=== PATIENT | male | born 1995 | race American Indian/Alaskan Native ===

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

== ENCOUNTER 2017-04-08 09:33 | Emergency (ER) | payer SELFPAY ==
[2017-04-08 09:52] VITALS: BP 140/82
--- NOTE | 2017-04-08 11:06 | Emergency Department Report ---
HPI - General Chief Complaint: Upper Respiratory Infection Time Seen by Provider: 04/08/17 11:01 - HPI HPI: 21 year-old male with no problem medical condition who states he's had intermittent coughing for the past 4 days. Patient states he had a history of bronchitis last year and thinks it's acting. Patient states that coughing is intermittent and at some point he noticed some blood with his sputum when he coughs. He denies fevers/chills/nausea/vomiting/abdominal pain/chest pain/shortness of breath/dizziness/ ED Past Medical Hx - Past Medical History Previous Medical History?: Yes Additional medical history: Bronchitis, Right foot swelling - Surgical History Past Surgical History?: No - Social History Smoking Status: Never Smoker Substance Use Type: Non Opiate Pain - Medications Home Medications: Home Medications Medication Instructions Recorded Confirmed Last Taken Type Fluticasone [Flonase] 1 spray NS QDAY #1 bottle 05/31/16 Unknown Rx Albuterol Sulfate [Proair 90 mcg IH Q4HR PRN #2 aer.[email or web address] 04/08/17 Unknown Rx Respiclick] Benzonatate [Tessalon Perles] 100 mg PO Q8HR PRN #30 capsule 04/08/17 Unknown Rx Ibuprofen [Motrin 600 MG tab] 600 mg PO Q8H PRN #30 tablet 04/08/17 Unknown Rx ED Review of Systems ROS: Stated complaint: CHEST PAIN Other details as noted in HPI Constitutional: denies: chills, fever Eyes: denies: eye pain, eye discharge, vision change ENT: denies: ear pain, throat pain Respiratory: denies: cough, shortness of breath, wheezing Cardiovascular: denies: chest pain, palpitations Endocrine: no symptoms reported Gastrointestinal: denies: abdominal pain, nausea, diarrhea Genitourinary: denies: urgency, dysuria Musculoskeletal: denies: back pain, joint swelling, arthralgia Skin: denies: rash, lesions Neurological: denies: headache, weakness, paresthesias Psychiatric: denies: anxiety, depression Hematological/Lymphatic: denies: easy bleeding, easy bruising Physical Exam - Physical Exam Vital Signs: Vital Signs 04/08/17 09:48 Temperature 97.5 F L Pulse Rate 73 Respiratory 18 Rate Blood Pressure 140/82 O2 Sat by Pulse 99 Oximetry Physical Exam: GENERAL: Alert and oriented x3, no apparent distress, Normal Gait, atraumatic. HEAD: Head is normocephalic and a-traumatic. EYES: Extra ocular muscles are intact. Pupils are equal, round, and reactive to light and accommodation. EARS: symetrical, atraumatic, non tender, ear canal clear and moderate cerumen, tympanic membrance non inflamed. gross auditory nml bilaterally. NOSE: Nose symetrical, Nontender,Nares appeared normal. MOUTH:Mouth is well hydrated and without lesions. Tonsils nonerythematous or swollen, Uvula midline, Tongue not elevated. Mucous membranes are moist. Posterior pharynx clear, no exudate or lesions. Patent airways. NECK: Supple. Non edematous, No carotid bruits. No lymphadenopathy or thyromegaly. No C-spine tenderness LUNGS: Symetrical with respiration, No wheezing, no rales or crackles, CTAB. HEART: S1, S2 present, regular rate and rhythm without murmur, no rubs, no gallops. Non tender to palpation SKIN: Warm and dry, No lesions, No ulceration or induration present. ED Course Vital Signs 04/08/17 09:48 Temperature 97.5 F L Pulse Rate 73 Respiratory 18 Rate Blood Pressure 140/82 O2 Sat by Pulse 99 Oximetry ED Medical Decision Making - Radiology Data Radiology results: report reviewed, image reviewed cc: MARIO LAUREN Fluoro Time In Minutes: ROUTINE CHEST, TWO VIEWS: HISTORY: Cough. The trachea, heart, mediastinal contour, lung regan and bony thorax are unremarkable. IMPRESSION: Unremarkable chest x-ray. Transcribed By: TTR Dictated By: TITO PATHAK JR, MD Electronically Authenticated By: TITO PATHAK JR, MD Signed Date/Time: 04/08/17 1140 Critical care attestation.: If time is entered above; I have spent that time in minutes in the direct care of this critically ill patient, excluding procedure time. ED Disposition Clinical Impression: Bronchitis Disposition: DC-01 TO HOME OR SELFCARE Is pt being admited?: No Does the pt Need Aspirin: No Condition: Stable Instructions: Chronic Bronchitis (ED) Additional Instructions: Make sure to follow up with the primary care physician as discussed. Take all your medications as you've been prescribed. If you have any worsening symptoms or develop new symptoms please return to ED immediately. Prescriptions: Albuterol Sulfate [Proair Respiclick] 90 mcg IH Q4HR PRN #2 aer.pow.ba PRN Reason: Wheezing Benzonatate [Tessalon Perles] 100 mg PO Q8HR PRN #30 capsule PRN Reason: Cough Ibuprofen [Motrin 600 MG tab] 600 mg PO Q8H PRN #30 tablet PRN Reason: Pain Referrals: PRIMARY CARE, [Primary Care Provider] - 3-5 Days [facility] [Outside] - 3-5 Days [facility] [Outside] - 3-5 Days [facility] [Outside] - 3-5 Days Forms: Work/School Release Form(ED) Time of Disposition: 12:32
--- NOTE | 2017-04-08 11:44 | XRay Report ---
ROUTINE CHEST, TWO VIEWS: HISTORY: Cough. The trachea, heart, mediastinal contour, lung regan and bony thorax are unremarkable. IMPRESSION: Unremarkable chest x-ray.
== END 2017-04-08 13:08 | disposition home or self-care (01) ==
LOC: ED 09:33
DX: J40 Bronchitis, not specified as acute or chronic (principal)
CPT/HCPCS: 71020; 99283

== ENCOUNTER 2017-11-03 16:52 | Emergency (ER) | payer OTHER ==
[2017-11-03] MEDS ORDERED: TORADOL IV ONE (17:39)
[2017-11-03] MEDS ORDERED: DILAUDID IV ONE ×2 (17:39→20:11)
[2017-11-03] MEDS ORDERED: ZOFRAN IV ONE (17:39)
[2017-11-03] MEDS ORDERED: MORPHINE IV ONE (17:58)
[2017-11-03 18:19] LABS: Basophils % (Auto) 0.4 % (0.0-1.8); Eosinophils # (Auto) 0.2 K/mm3 (0.0-0.4); Eosinophils % (Auto) 3.8 % (0.0-4.3); Hemoglobin 15.5 gm/dl (11.8-15.2); Lymphocytes # (Auto) 1.8 K/mm3 (1.2-5.4); Lymphocytes % (Auto) 33.6 % (13.4-35.0); Mean Corpuscular HGB Conc 32 % (32-34); Mean Corpuscular Hemoglobin 27 pg (28-32); Mean Corpuscular Volume 84 fl (84-94); Monocytes # (Auto) 0.5 K/mm3 (0.0-0.8); Monocytes % (Auto) 8.9 % (0.0-7.3); Platelet Count 228 K/mm3 (140-440); Red Blood Count 5.68 M/mm3 (3.65-5.03); Red Cell Distribution Width 14.2 % (13.2-15.2)
[2017-11-03 18:27] LABS: INR 1.02 (0.87-1.13)
[2017-11-03 18:28] LABS: Partial Thromboplastin Time 34.3 Sec. (24.2-36.6)
[2017-11-03 18:35] LABS: Alanine Aminotransferase 10 units/L (7-56); Albumin 4.3 g/dL (3.9-5); BUN/Creatinine Ratio 15; Blood Urea Nitrogen 15 mg/dL (9-20); Calcium 9.2 mg/dL (8.4-10.2); Hemolysis Index 15
--- NOTE | 2017-11-03 19:22 | Emergency Department Report ---
<MARIE KHALIL - Last Filed: 11/03/17 23:56> ED Fall HPI - General Chief Complaint: Fall Stated Complaint: HEAD PAIN Time Seen by Provider: 11/03/17 16:59 - Related Data Previous Rx's Medication Instructions Recorded Last Taken Type Fluticasone [Flonase] 1 spray NS QDAY #1 bottle 05/31/16 Unknown Rx Albuterol Sulfate [Proair 90 mcg IH Q4HR PRN #2 aer.pow.ba 04/08/17 Unknown Rx Respiclick] Benzonatate [Tessalon Perles] 100 mg PO Q8HR PRN #30 capsule 04/08/17 Unknown Rx ALBUTEROL NEB's [Proventil 0.083% 2.5 mg IH TID PRN #1 box 10/24/17 Unknown Rx NEBS] Albuterol Sulfate [Ventolin Hfa] 1 puff IH Q4H PRN #1 hfa.aer.ad 10/24/17 Unknown Rx Benzonatate [Tessalon Perles] 100 mg PO Q8HR PRN #20 capsule 10/24/17 Unknown Rx Nebulizer [Compact Compressor 1 each MC ONCE #1 each 10/24/17 Unknown Rx Nebulizer] Phenylephrine/Dm/Acetaminop/GG 10 ml PO Q6H PRN #1 liquid 10/24/17 Unknown Rx [Mucinex Mvuh-Fyp-Sxjikykmzr Lq] predniSONE [Deltasone] 40 mg PO QDAY #10 tab 10/24/17 Unknown Rx Ondansetron [Zofran Odt] 4 mg PO Q8HR PRN #14 tab.rapdis 11/03/17 Unknown Rx traMADol [Ultram 50 MG tab] 50 mg PO Q4HR PRN #14 tablet 11/03/17 Unknown Rx Allergies Allergy/AdvReac Type Severity Reaction Status Date / Time No Known Allergies Allergy Verified 10/24/17 13:10 ED Review of Systems ROS: Stated complaint: HEAD PAIN Other details as noted in HPI ED Past Medical Hx - Medications Home Medications: Home Medications Medication Instructions Recorded Confirmed Last Taken Type Fluticasone [Flonase] 1 spray NS QDAY #1 bottle 05/31/16 Unknown Rx Albuterol Sulfate [Proair 90 mcg IH Q4HR PRN #2 aer.pow.ba 04/08/17 Unknown Rx Respiclick] Benzonatate [Tessalon Perles] 100 mg PO Q8HR PRN #30 capsule 04/08/17 Unknown Rx ALBUTEROL NEB's [Proventil 0.083% 2.5 mg IH TID PRN #1 box 10/24/17 Unknown Rx NEBS] Albuterol Sulfate [Ventolin Hfa] 1 puff IH Q4H PRN #1 hfa.aer.ad 10/24/17 Unknown Rx Benzonatate [Tessalon Perles] 100 mg PO Q8HR PRN #20 capsule 10/24/17 Unknown Rx Nebulizer [Compact Compressor 1 each MC ONCE #1 each 10/24/17 Unknown Rx Nebulizer] Phenylephrine/Dm/Acetaminop/GG 10 ml PO Q6H PRN #1 liquid 10/24/17 Unknown Rx [Mucinex Scpr-Stn-Rpbgufhvrk Lq] predniSONE [Deltasone] 40 mg PO QDAY #10 tab 10/24/17 Unknown Rx Ondansetron [Zofran Odt] 4 mg PO Q8HR PRN #14 tab.rapdis 11/03/17 Unknown Rx traMADol [Ultram 50 MG tab] 50 mg PO Q4HR PRN #14 tablet 11/03/17 Unknown Rx ED Course Vital Signs 11/03/17 11/03/17 11/03/17 17:22 17:30 17:46 Temperature 98.8 F Pulse Rate 61 76 57 L Respiratory 11 L 10 L 16 Rate Blood Pressure 116/70 116/70 Blood Pressure 116/70 [Right] O2 Sat by Pulse 100 100 99 Oximetry 11/03/17 11/03/17 11/03/17 18:00 18:15 18:23 Temperature Pulse Rate 56 L 60 Respiratory 16 18 17 Rate Blood Pressure 108/68 117/71 Blood Pressure [Right] O2 Sat by Pulse 100 98 Oximetry 11/03/17 11/03/17 11/03/17 18:30 19:41 19:44 Temperature Pulse Rate 61 62 76 Respiratory 15 13 Rate Blood Pressure 117/71 132/83 132/83 Blood Pressure [Right] O2 Sat by Pulse 98 97 98 Oximetry 11/03/17 11/03/17 11/03/17 19:45 20:00 20:03 Temperature Pulse Rate 72 75 68 Respiratory 9 L 11 L 12 Rate Blood Pressure 122/75 123/73 123/73 Blood Pressure [Right] O2 Sat by Pulse 98 99 100 Oximetry 11/03/17 11/03/17 11/03/17 20:15 20:31 20:45 Temperature Pulse Rate 65 64 59 L Respiratory 6 L 17 11 L Rate Blood Pressure 123/73 109/57 109/57 Blood Pressure [Right] O2 Sat by Pulse 99 99 100 Oximetry 11/03/17 11/03/17 11/03/17 21:01 21:15 21:30 Temperature Pulse Rate 54 L 58 L 58 L Respiratory 17 14 15 Rate Blood Pressure 115/77 115/77 127/65 Blood Pressure [Right] O2 Sat by Pulse 93 98 99 Oximetry 11/03/17 11/03/17 11/03/17 21:45 22:00 22:15 Temperature Pulse Rate 73 60 61 Respiratory 11 L 14 14 Rate Blood Pressure 115/77 136/61 136/61 Blood Pressure [Right] O2 Sat by Pulse 96 89 89 Oximetry ED Medical Decision Making - Lab Data Result diagrams: 11/03/17 17:59 11/03/17 17:59 Critical care attestation.: If time is entered above; I have spent that time in minutes in the direct care of this critically ill patient, excluding procedure time. ED Disposition Clinical Impression: Fall, Numbness of left lower extremity Disposition: DC-01 TO HOME OR SELFCARE Is pt being admited?: No Condition: Stable Instructions: Paresthesia (ED), Fall Prevention (ED) Prescriptions: Ondansetron [Zofran Odt] 4 mg PO Q8HR PRN #14 tab.rapdis PRN Reason: Nausea And Vomiting traMADol [Ultram 50 MG tab] 50 mg PO Q4HR PRN #14 tablet PRN Reason: Pain Referrals: PRIMARY CARE, [Primary Care Provider] - 3-5 Days <ANNE BROWN - Last Filed: 11/06/17 07:39> ED Fall HPI - General Source: patient, EMS Mode of arrival: Stretcher Limitations: No Limitations - History of Present Illness Initial Comments: 22-year-old male with a past medical history reactive airway disease presents to the hospital status post fall while time to jump over a fence. Patient states he started shortcut to somewhat sharp and is trying to climb over a 6 foot fence when he fell. Positive LOC reported. Patient complains of headache , neck pain, left-sided rib, left abdominal pain, left hip pain, left leg numbness. Pain is moderate to severe in intensity, constant, worse movement and palpation. ED Review of Systems Comment: All other systems reviewed and negative ED Past Medical Hx - Past Medical History Hx Asthma: Yes Additional medical history: Bronchitis Reactive airway disease - Surgical History Past Surgical History?: No - Social History Smoking Status: Never Smoker Substance Use Type: None ED Physical Exam - General Limitations: Physical Limitation - Other Other exam information: General: Mild distress secondary to pain Head exam: Atraumatic, normocephalic Eyes exam: Normal appearance, pupils equal and reactive to light ENT: Moist mucous membrane Neck exam: Patient in c-collar, generalized posterior neck tenderness on exam Respiratory exam: Clear to auscultation bilateral, no wheezes, rales, crackles. Left-sided rib tenderness with palpation Cardiovascular: Normal rate and rhythm, normal heart sounds Abdomen: Soft, nondistended, Left abd tenderness, with normal bowel sounds, no rebound, or guarding Rectal tone: good, no saddle anesthesia Extremity: Left hip tenderness, limited motion due to pain, no deformity Back: Normal Inspection, full range of motion, no midline enderness to the thoracic or lumbar spine. Neurologic: Alert, oriented x3, cranial nerves intact, patient unable to lift left leg off of the bed. Weak left foot plantar flexion and grimace during attempts. These of persistent left hip pain. Decreased sensation to touch and pinprick to the left leg. Equal hand ice cream scooper and sensation to touch to bilateral arms. Psychiatric: normal affect, normal mood Skin: Warm, dry, intact ED Course - Reevaluation(s) Reevaluation #1: 11/03/17 20:22 pt continues to have hip pain and left leg numbness ED Medical Decision Making - Lab Data Result diagrams: 11/03/17 17:59 11/03/17 17:59 Lab Results 11/03/17 11/03/17 11/03/17 Range/Units 17:56 17:59 17:59 WBC 5.5 (4.5-11.0) K/mm3 RBC 5.68 H (3.65-5.03) M/mm3 Hgb 15.5 H (11.8-15.2) gm/dl Hct 48.0 H (35.5-45.6) % MCV 84 (84-94) fl MCH 27 L (28-32) pg MCHC 32 (32-34) % RDW 14.2 (13.2-15.2) % Plt Count 228 (140-440) K/mm3 Lymph % (Auto) 33.6 (13.4-35.0) % [place] % (Auto) 8.9 H (0.0-7.3) % Eos % (Auto) 3.8 (0.0-4.3) % Baso % (Auto) 0.4 (0.0-1.8) % Lymph # 1.8 (1.2-5.4) K/mm3 [place] # 0.5 (0.0-0.8) K/mm3 Eos # 0.2 (0.0-0.4) K/mm3 Baso # 0.0 (0.0-0.1) K/mm3 Seg Neutrophils % 53.3 (40.0-70.0) % Seg Neutrophils # 2.9 (1.8-7.7) K/mm3 PT 13.9 (12.2-14.9) Sec. INR 1.02 (0.87-1.13) APTT 34.3 (24.2-36.6) Sec. Sodium (137-145) mmol/L Potassium (3.6-5.0) mmol/L Chloride (98-107) mmol/L Carbon Dioxide (22-30) mmol/L Anion Gap mmol/L BUN (9-20) mg/dL Creatinine (0.8-1.5) mg/dL Estimated GFR ml/min BUN/Creatinine Ratio % Glucose (75-100) mg/dL Calcium (8.4-10.2) mg/dL Total Bilirubin (0.1-1.2) mg/dL AST (5-40) units/L ALT (7-56) units/L Alkaline Phosphatase (35-129) units/L Total Protein (6.3-8.2) g/dL Albumin (3.9-5) g/dL Albumin/Globulin Ratio % Blood Type O POSITIVE Antibody Screen Negative 11/03/17 Range/Units 17:59 WBC (4.5-11.0) K/mm3 RBC (3.65-5.03) M/mm3 Hgb (11.8-15.2) gm/dl Hct (35.5-45.6) % MCV (84-94) fl MCH (28-32) pg MCHC (32-34) % RDW (13.2-15.2) % Plt Count (140-440) K/mm3 Lymph % (Auto) (13.4-35.0) % [place] % (Auto) (0.0-7.3) % Eos % (Auto) (0.0-4.3) % Baso % (Auto) (0.0-1.8) % Lymph # (1.2-5.4) K/mm3 [place] # (0.0-0.8) K/mm3 Eos # (0.0-0.4) K/mm3 Baso # (0.0-0.1) K/mm3 Seg Neutrophils % (40.0-70.0) % Seg Neutrophils # (1.8-7.7) K/mm3 PT (12.2-14.9) Sec. INR (0.87-1.13) APTT (24.2-36.6) Sec. Sodium 138 (137-145) mmol/L Potassium 4.3 (3.6-5.0) mmol/L Chloride 100.0 (98-107) mmol/L Carbon Dioxide 29 (22-30) mmol/L Anion Gap 13 mmol/L BUN 15 (9-20) mg/dL Creatinine 1.0 (0.8-1.5) mg/dL Estimated GFR > 60 ml/min BUN/Creatinine Ratio 15 % Glucose 95 (75-100) mg/dL Calcium 9.2 (8.4-10.2) mg/dL Total Bilirubin 0.50 (0.1-1.2) mg/dL AST 18 (5-40) units/L ALT 10 (7-56) units/L Alkaline Phosphatase 49 (35-129) units/L Total Protein 6.7 (6.3-8.2) g/dL Albumin 4.3 (3.9-5) g/dL Albumin/Globulin Ratio 1.8 % Blood Type Antibody Screen - Radiology Data Radiology results: report reviewed FINAL REPORT EXAM: CT CERVICAL SPINE WO CON HISTORY: left chest pain s/p 6 ft fall TECHNIQUE: Standard CT cervical spine obtained at 2.5 mm axial increments. Coronal and sagittal reconstruction was also performed. PRIORS: None. FINDINGS: The vertebral bodies are intact. There is no evidence for acute fracture. There is no evidence for paravertebral soft tissue swelling. Alignment is maintained. IMPRESSION: Negative CT of the cervical spine. EXAM: CT HEAD/BRAIN WO CON HISTORY: fall off 6 ft fence, syncope TECHNIQUE: Standard unenhanced CT of the head at 5.0 millimeter axial increments. PRIORS: None. FINDINGS: The ventricular system is normal in size and configuration. There is no evidence for parenchymal volume loss. There is no evidence for mass lesion, mass effect, midline shift, acute intracranial hemorrhage, or acute ischemia/ infarction. No evidence for acute skull fracture is seen. No abnormality in the overlying scalp soft tissues is seen. Visualized paranasal sinuses demonstrates mucosal thickening in the maxillary sinuses, right greater than left, and several scattered bilateral ethmoid sinuses. IMPRESSION: Chronic sinusitis.. No acute intracranial process noted. EXAM: CT CHEST W CON HISTORY: left chest pain s/p 6 ft fall TECHNIQUE: Standard enhanced CT of the chest at 5.0 millimeter axial increments. Coronal and sagittal reconstructions were obtained. Contrast: 100 cc Omnipaque 300 given IV. PRIORS: None. FINDINGS: The lung parenchyma are expanded and clear with no evidence for parenchymal infiltrates, congestion, or pleural effusion. No pneumothorax is noted. No parenchymal lung contusion is seen. Mediastinum has a normal appearance with no evidence for mediastinal hematoma or mediastinal air. The thymus is normal for the patient's age. Heart, aorta, and other vascular structures appear intact with no evidence for extravasation of contrast. The bony structures appear intact with no evidence for fracture. No soft tissue abnormality is seen. Imaging through the lung bases includes the upper abdomen shows no abnormality of the visualized abdominal viscera. The upper abdominal aorta appears normal. IMPRESSION: Negative CT of the chest. No evidence for vascular injury, pneumothorax, or bony fracture. FINAL REPORT EXAM: CT ABDOMEN PELVIS W CON HISTORY: left abd pain and hip pain s/p 6 ft fall TECHNIQUE: Standard enhanced CT of the abdomen and pelvis. Coronal and sagittal reconstruction was also performed. Delayed imaging was obtained. Contrast: 100 mL Omnipaque 300 given IV. PRIORS: None. FINDINGS: Within the abdomen, the liver, spleen, pancreas, gallbladder, adrenal glands, and kidneys are unremarkable. No evidence for intraperitoneal, retroperitoneal or pelvic hemorrhage is seen. The bowel loops have normal caliber. No soft tissue mass, fluid collection, inflammatory change, or free air is seen within the abdomen or pelvis. The appendix is normal. Within the pelvis, the bladder is unremarkable. The prostate is normal. No evidence for mass or fluid collection is seen in the pelvis. Images through the upper abdomen include the lung bases which are expanded and clear. Bony structures show no focal abnormalities and are intact. No evidence for acute fracture is seen. IMPRESSION: No acute intra-abdominal process noted. No evidence for bony, vascular, or organ injury. FINAL REPORT PROCEDURE: MR LUMBAR SPINE WO CON TECHNIQUE: Magnetic resonance imaging of the lumbar spine was performed using standard pulse sequences without contrast material. CPT 21746 HISTORY: left leg weakness, numbness after fall COMPARISON: No prior studies are available for comparison. FINDINGS: This study is limited due to motion artifacts. Vertebral alignment and height are within normal limits with normal bone marrow signal. Conus medullaris is normal in location and appearance. L1-2: No significant abnormality . L2-3: No significant abnormality . L3-4: No significant abnormality . L4-5: No significant abnormality . L5-S1: No significant abnormality.. Other: None . IMPRESSION: Limited study due to motion artifacts. No evidence of spinal canal or neural foraminal compromise. FINAL REPORT EXAM: XR FEMUR 2+V LT HISTORY: left femur pain after fall TECHNIQUE: AP and lateral views of the left femur PRIORS: None. FINDINGS: There is no evidence for acute fracture or dislocation. No soft tissue swelling or radiopaque foreign bodies are seen. Bony mineralization is normal and joint spaces are maintained. IMPRESSION: No acute bony or soft tissue abnormality noted. - Medical Decision Making Patient has persistent left leg pain and numbness despite medication. Additional medication ordered. Patient continues to have left leg and numbness to pinprick. He reports a previous left hip injury/dislocation in the past but had normal sensation prior to this fall. For this reason x-ray of the left femur and MRI of the L-spine has been ordered. Dr Khalil to follow results and dispo pt. - Differential Diagnosis fxt, contuson, sprain, spinal injury Critical Care Time: No ED Disposition Is pt being admited?: No Time of Disposition: 02:45
--- NOTE | 2017-11-03 19:41 | Cat Scan Report ---
FINAL REPORT EXAM: CT CERVICAL SPINE WO CON HISTORY: left chest pain s/p 6 ft fall TECHNIQUE: Standard CT cervical spine obtained at 2.5 mm axial increments. Coronal and sagittal reconstruction was also performed. PRIORS: None. FINDINGS: The vertebral bodies are intact. There is no evidence for acute fracture. There is no evidence for paravertebral soft tissue swelling. Alignment is maintained. IMPRESSION: Negative CT of the cervical spine.
--- NOTE | 2017-11-03 19:50 | Cat Scan Report ---
FINAL REPORT EXAM: CT CHEST W CON HISTORY: left chest pain s/p 6 ft fall TECHNIQUE: Standard enhanced CT of the chest at 5.0 millimeter axial increments. Coronal and sagittal reconstructions were obtained. Contrast: 100 cc Omnipaque 300 given IV. PRIORS: None. FINDINGS: The lung parenchyma are expanded and clear with no evidence for parenchymal infiltrates, congestion, or pleural effusion. No pneumothorax is noted. No parenchymal lung contusion is seen. Mediastinum has a normal appearance with no evidence for mediastinal hematoma or mediastinal air. The thymus is normal for the patient's age. Heart, aorta, and other vascular structures appear intact with no evidence for extravasation of contrast. The bony structures appear intact with no evidence for fracture. No soft tissue abnormality is seen. Imaging through the lung bases includes the upper abdomen shows no abnormality of the visualized abdominal viscera. The upper abdominal aorta appears normal. IMPRESSION: Negative CT of the chest. No evidence for vascular injury, pneumothorax, or bony fracture.
--- NOTE | 2017-11-03 20:01 | Cat Scan Report ---
FINAL REPORT EXAM: CT ABDOMEN PELVIS W CON HISTORY: left abd pain and hip pain s/p 6 ft fall TECHNIQUE: Standard enhanced CT of the abdomen and pelvis. Coronal and sagittal reconstruction was also performed. Delayed imaging was obtained. Contrast: 100 mL Omnipaque 300 given IV. PRIORS: None. FINDINGS: Within the abdomen, the liver, spleen, pancreas, gallbladder, adrenal glands, and kidneys are unremarkable. No evidence for intraperitoneal, retroperitoneal or pelvic hemorrhage is seen. The bowel loops have normal caliber. No soft tissue mass, fluid collection, inflammatory change, or free air is seen within the abdomen or pelvis. The appendix is normal. Within the pelvis, the bladder is unremarkable. The prostate is normal. No evidence for mass or fluid collection is seen in the pelvis. Images through the upper abdomen include the lung bases which are expanded and clear. Bony structures show no focal abnormalities and are intact. No evidence for acute fracture is seen. IMPRESSION: No acute intra-abdominal process noted. No evidence for bony, vascular, or organ injury.
--- NOTE | 2017-11-03 22:25 | XRay Report ---
FINAL REPORT EXAM: XR FEMUR 2+V LT HISTORY: left femur pain after fall TECHNIQUE: AP and lateral views of the left femur PRIORS: None. FINDINGS: There is no evidence for acute fracture or dislocation. No soft tissue swelling or radiopaque foreign bodies are seen. Bony mineralization is normal and joint spaces are maintained. IMPRESSION: No acute bony or soft tissue abnormality noted.
--- NOTE | 2017-11-03 23:37 | Magnetic Resonance Report ---
FINAL REPORT PROCEDURE: MR LUMBAR SPINE WO CON TECHNIQUE: Magnetic resonance imaging of the lumbar spine was performed using standard pulse sequences without contrast material. CPT 43407 HISTORY: left leg weakness, numbness after fall COMPARISON: No prior studies are available for comparison. FINDINGS: This study is limited due to motion artifacts. Vertebral alignment and height are within normal limits with normal bone marrow signal. Conus medullaris is normal in location and appearance. L1-2: No significant abnormality . L2-3: No significant abnormality . L3-4: No significant abnormality . L4-5: No significant abnormality . L5-S1: No significant abnormality.. Other: None . IMPRESSION: Limited study due to motion artifacts. No evidence of spinal canal or neural foraminal compromise.
--- NOTE | 2017-11-03 23:56 | Emergency Department Report ---
Blank Doc - Documentation Documentation: Patient is 22 years old male signed out to me by my colleague Dr. Holliday. Patient presented to the ER for evaluation after a fall with chief complaint of left leg weakness and numbness. Patient LS spine MRI as follows: Referring Physician: ANNE BROWN Patient Name: EFRAÍN BOLANOS Date of : 1995 Sex: Male Report Date: 2017-11-03 Report Status: [place] [address] Magnetic Resonance Report Signed Patient: EFRAÍN BOLANOS MR#: [id number] : 1995 Acct:[id number] Age/Sex: 22 / M ADM Date: 11/03/17 Loc: ED Attending Dr: Ordering Physician: ANNE BROWN MD Date of Service: 11/03/17 Procedure(s): MR lumbar spine wo con Accession Number(s): [id number] cc: ANNE BROWN MD FINAL REPORT PROCEDURE: MR LUMBAR SPINE WO CON TECHNIQUE: Magnetic resonance imaging of the lumbar spine was performed using standard pulse sequences without contrast material. CPT 38108 HISTORY: left leg weakness, numbness after fall COMPARISON: No prior studies are available for comparison. FINDINGS: This study is limited due to motion artifacts. Vertebral alignment and height are within normal limits with normal bone marrow signal. Conus medullaris is normal in location and appearance. L1-2: No significant abnormality . L2-3: No significant abnormality . L3-4: No significant abnormality . L4-5: No significant abnormality . L5-S1: No significant abnormality.. Other: None . IMPRESSION: Limited study due to motion artifacts. No evidence of spinal canal or neural foraminal compromise. Transcribed By: [facility] Dictated By: STEFANO DILL Electronically Authenticated By: STEFANO DILL Signed Date/Time: 11/03/172332 DD/ 32 TD/TT: 11/03/172332 On exam patient does not have any weakness on both sides. Mild numbness to the left leg mainly to the anterio-lateral side. Patient also mentioned that he had history of left hip dislocation in 2016. Patient is able to walk with no difficulty. Patient will be discharged home to follow-up with his primary care physician. I also advised patient to return to the ER if his symptoms are not improving.
[2017-11-04 02:47] VITALS: BP 136/61
== END 2017-11-03 23:00 | disposition home or self-care (01) ==
LOC: ED 16:52
DX: M25.552 Pain in left hip (principal); M54.2 Cervicalgia; R20.0 Anesthesia of skin; J45.909 Unspecified asthma, uncomplicated; R07.89 Other chest pain; R10.2 Pelvic and perineal pain; M54.6 Pain in thoracic spine
CPT/HCPCS: 36415; 70450; 71260; 72125; 72148; 73552; 74177; 80053; 85025; 85610; 85730; 86850; 86900; 86901; 96374; 96375; 99285; J1170; J1885; J2270; J2405; Q9967

== ENCOUNTER 2017-12-29 04:27 | Emergency (ER) | payer SELFPAY ==
[2017-12-29 08:39] VITALS: BP 127/71
[2017-12-29] MEDS ORDERED: ASPIRIN PO ONE (08:40)
[2017-12-29 09:57] LABS: Basophils % (Auto) 0.5 % (0.0-1.8); Eosinophils # (Auto) 0.3 K/mm3 (0.0-0.4); Eosinophils % (Auto) 4.6 % (0.0-4.3); Hematocrit 48.4 % (35.5-45.6); Hemoglobin 15.8 gm/dl (11.8-15.2); Lymphocytes # (Auto) 1.6 K/mm3 (1.2-5.4); Lymphocytes % (Auto) 28.8 % (13.4-35.0); Mean Corpuscular HGB Conc 33 % (32-34); Mean Corpuscular Hemoglobin 28 pg (28-32); Mean Corpuscular Volume 85 fl (84-94); Monocytes # (Auto) 0.5 K/mm3 (0.0-0.8); Monocytes % (Auto) 8.6 % (0.0-7.3); Platelet Count 206 K/mm3 (140-440); Red Blood Count 5.67 M/mm3 (3.65-5.03); Red Cell Distribution Width 14.6 % (13.2-15.2)
[2017-12-29 10:10] LABS: BUN/Creatinine Ratio 19; Blood Urea Nitrogen 17 mg/dL (9-20); Hemolysis Index 19
== END 2017-12-29 13:22 | disposition left against medical advice (07) ==
LOC: ED 04:27
DX: R07.9 Chest pain, unspecified (principal); M54.2 Cervicalgia; F17.200 Nicotine dependence, unspecified, uncomplicated; J45.909 Unspecified asthma, uncomplicated; I10 Essential (primary) hypertension; Z53.21 Procedure and treatment not carried out due to patient leaving prior to being seen by health care provider; Z79.899 Other long term (current) drug therapy
CPT/HCPCS: 36415; 80048; 84484; 85025; 93005; 93010

== ENCOUNTER 2018-09-29 12:21 | Emergency (ER) | payer SELFPAY | END 2018-09-29 12:40 | LOC: ED 12:21 | DX: Z00.8 Encounter for other general examination (principal); Z53.21 Procedure and treatment not carried out due to patient leaving prior to being seen by health care provider ==

== ENCOUNTER 2019-05-12 16:05 | Emergency (ER) | payer SELFPAY ==
[2019-05-12 16:44] VITALS: BP 139/82
[2019-05-12] MEDS ORDERED: IBUPROFEN 600 MG TAB PO ONE ×2 (17:04→17:05)
--- NOTE | 2019-05-12 17:06 | Emergency Department Report ---
Minor Respiratory - HPI Chief Complaint: Upper Respiratory Infection Stated Complaint: FLU LIKE SYMPTOMS Time Seen by Provider: 05/12/19 17:02 Duration: 2 Days Severity: moderate Minor Respiratory: Yes Sore Throat, Yes Able to Tolerate Fluids, Yes Cough, Yes Sick Contacts, Yes Fever, No Rhinorrhea, No Ear Pain, No Hemoptysis, No Chest Pain, No Shortness of Breath Other History: 23 YO AA MALE COMES TO ER WITH FLU LIKE SYMPTOMS. FEVER. COUGH. NO ABD PAIN. NO FLU SHOT. HAS NOT SEEN PCP. ED Review of Systems ROS: Stated complaint: FLU LIKE SYMPTOMS Other details as noted in HPI Comment: All other systems reviewed and negative ED Past Medical Hx - Past Medical History Hx Hypertension: Yes Hx Asthma: Yes Additional medical history: Bronchitis Reactive airway disease - Surgical History Past Surgical History?: Yes - Family History Family history: no significant - Social History Smoking Status: Never Smoker - Medications Home Medications: Home Medications Medication Instructions Recorded Confirmed Last Taken Type Fluticasone [Flonase] 1 spray NS QDAY #1 bottle 05/31/16 Unknown Rx Albuterol Sulfate [Proair 90 mcg IH Q4HR PRN #2 aer.pow.ba 04/08/17 Unknown Rx Respiclick] Benzonatate [Tessalon Perles] 100 mg PO Q8HR PRN #30 capsule 04/08/17 Unknown Rx ALBUTEROL NEB's [Proventil 0.083% 2.5 mg IH TID PRN #1 box 10/24/17 Unknown Rx NEBS] Albuterol Sulfate [Ventolin Hfa] 1 puff IH Q4H PRN #1 hfa.aer.ad 10/24/17 Unknown Rx Benzonatate [Tessalon Perles] 100 mg PO Q8HR PRN #20 capsule 10/24/17 Unknown Rx Nebulizer [Compact Compressor 1 each MC ONCE #1 each 10/24/17 Unknown Rx Nebulizer] Phenylephrine/Dm/Acetaminop/GG 10 ml PO Q6H PRN #1 liquid 10/24/17 Unknown Rx [Mucinex Rxou-Wpa-Yehqqvlmhk Lq] predniSONE [Deltasone] 40 mg PO QDAY #10 tab 10/24/17 Unknown Rx Ondansetron [Zofran Odt] 4 mg PO Q8HR PRN #14 tab.rapdis 11/03/17 Unknown Rx traMADoL [Ultram 50 MG tab] 50 mg PO Q4HR PRN #14 tablet 11/03/17 Unknown Rx Acetaminophen/Codeine [Tylenol 1 tab PO Q6H PRN #12 tab 03/01/18 Unknown Rx /Codeine # 3 tab] Ibuprofen [Motrin 600 MG tab] 600 mg PO Q8H PRN #15 tablet 03/01/18 Unknown Rx Oseltamivir [Tamiflu] 75 mg PO BID #10 cap 05/12/19 Unknown Rx Minor Respiratory Exam - Exam General: Vital signs noted. No distress. Alert and acting appropriately. HEENT: Yes Moist Mucous Membranes, No Pharyngeal Erythema, No Pharyngeal Exudates, No Rhinorrhea, No Conjuctival Injection, No Frontal Tenderness, No Maxillary Tenderness Ear: Neither TM Bulge, Neither TM Erythema, Neither EAC Pain, Neither EAC Discharge Neck: Yes Supple, No Adenopathy Lungs: Yes Good Air Exchange, No Wheezes, No Ronchi, No Stridor, No Cough, No Labored Respirations, No Retractions, No Use of Accessory Muscles, No Other Abnormal Lung Sounds Heart: Yes Regular, No Murmur Abdomen: Yes Normal Bowel Sounds, No Tenderness, No Peritoneal Signs Skin: No Rash, No Edema Neurologic: Alert and oriented, no deficits. Musculoskeletal: Unremarkable. ED Course Vital Signs 05/12/19 16:41 Temperature 102.0 F H Pulse Rate 115 H Respiratory 20 Rate Blood Pressure 139/82 O2 Sat by Pulse 98 Oximetry ED Medical Decision Making - Medical Decision Making Vital Signs 05/12/19 16:41 Temperature 102.0 F H Pulse Rate 115 H Respiratory 20 Rate Blood Pressure 139/82 O2 Sat by Pulse 98 Oximetry MEDICATED WITH MOTRIN IN ER DC HOME WITH RX FOR TAMIFLU AND PCP REFERRAL AMBULATORY TAKING PO - Differential Diagnosis FLU Critical care attestation.: If time is entered above; I have spent that time in minutes in the direct care of this critically ill patient, excluding procedure time. ED Disposition Clinical Impression: Influenza Disposition: DC-01 TO HOME OR SELFCARE Is pt being admited?: No Does the pt Need Aspirin: No Condition: Stable Instructions: Influenza (ED) Additional Instructions: TAKE MOTRIN AND TYLENOL AROUND THE CLOCK FOR PAIN MED ORDERED TODAY FOLLOW UP WITH PCP IN 48 HOURS TO BE SURE YOU ARE GETTING BETTER REFERRAL BELOW Prescriptions: Oseltamivir [Tamiflu] 75 mg PO BID #10 cap Referrals: TED FERRARO MD [Staff Physician] - 3-5 Days Time of Disposition: 17:04
== END 2019-05-12 17:13 | disposition home or self-care (01) ==
LOC: ED 16:05
DX: J11.1 Influenza due to unidentified influenza virus with other respiratory manifestations (principal); J45.909 Unspecified asthma, uncomplicated; I10 Essential (primary) hypertension; Z79.899 Other long term (current) drug therapy

== ENCOUNTER 2020-06-01 07:36 | Emergency (ER) | payer SELFPAY ==
[2020-06-01 07:46] VITALS: BP 118/70
--- NOTE | 2020-06-01 09:22 | XRay Report ---
LEFT FEMUR 2 VIEWS 0837 INDICATION: pain after fall COMPARISON: 11/03/2017 FINDINGS: Small artifact is seen on all images. No fractures or dislocations are seen. Signer Name: Lenny Flanagan MD Signed: 06/01/2020 9:18 AM Workstation Name: [id number]
--- NOTE | 2020-06-01 09:23 | XRay Report ---
LEFT KNEE 3 VIEWS INDICATION / CLINICAL INFORMATION: pain after fall. COMPARISON: None available. FINDINGS: No fracture or other skeletal abnormality. No evidence of significant joint effusion or hemarthrosis. LEFT LOWER LEG 2 VIEWS INDICATION / CLINICAL INFORMATION: pain after fall. COMPARISON: None available. FINDINGS: No fracture or other significant abnormality. Signer Name: Gabriel Stevens MD Signed: 06/01/2020 9:18 AM Workstation Name: [id number]
--- NOTE | 2020-06-01 09:28 | Emergency Department Report ---
ED General Adult HPI - General Chief complaint: Extremity Injury, Lower Stated complaint: FALL;LEG INJURY Time Seen by Provider: 06/01/20 07:46 Source: patient Mode of arrival: Ambulatory Limitations: No Limitations - History of Present Illness Initial comments: 24-year-old -[place] male patient presents with complaints of left leg pain after a fall at work today. Patient rates his pain as a 9/10 in severity states he is having difficulty walking. He states he fell onto the leg and twisted it. He denies any bruising, lacerations, or numbn ess/tingling/difficulty moving his leg. - Related Data Previous Rx's Medication Instructions Recorded Last Taken Type Fluticasone [Flonase] 1 spray NS QDAY #1 bottle 05/31/16 Unknown Rx Albuterol Sulfate [Proair 90 mcg IH Q4HR PRN #2 aer.pow.ba 04/08/17 Unknown Rx Respiclick] Benzonatate [Tessalon Perles] 100 mg PO Q8HR PRN #30 capsule 04/08/17 Unknown Rx ALBUTEROL NEB's [Proventil 0.083% 2.5 mg IH TID PRN #1 box 10/24/17 Unknown Rx NEBS] Albuterol Sulfate [Ventolin Hfa] 1 puff IH Q4H PRN #1 hfa.aer.ad 10/24/17 Unknown Rx Benzonatate [Tessalon Perles] 100 mg PO Q8HR PRN #20 capsule 10/24/17 Unknown Rx Nebulizer [Compact Compressor 1 each MC ONCE #1 each 10/24/17 Unknown Rx Nebulizer] Phenylephrine/Dm/Acetaminop/GG 10 ml PO Q6H PRN #1 liquid 10/24/17 Unknown Rx [Mucinex Akdm-Kxd-Yuajvqxswd Lq] predniSONE [Deltasone] 40 mg PO QDAY #10 tab 10/24/17 Unknown Rx Ondansetron [Zofran Odt] 4 mg PO Q8HR PRN #14 tab.rapdis 11/03/17 Unknown Rx traMADoL [Ultram 50 MG tab] 50 mg PO Q4HR PRN #14 tablet 11/03/17 Unknown Rx Acetaminophen/Codeine [Tylenol 1 tab PO Q6H PRN #12 tab 03/01/18 Unknown Rx /Codeine # 3 tab] Ibuprofen [Motrin 600 MG tab] 600 mg PO Q8H PRN #15 tablet 03/01/18 Unknown Rx Oseltamivir [Tamiflu] 75 mg PO BID #10 cap 05/12/19 Unknown Rx Ibuprofen [Motrin 800 MG tab] 800 mg PO Q8HR PRN #20 tablet 06/01/20 Unknown Rx Allergies Allergy/AdvReac Type Severity Reaction Status Date / Time No Known Allergies Allergy Verified 06/01/20 07:42 ED Review of Systems ROS: Stated complaint: FALL;LEG INJURY Other details as noted in HPI Constitutional: denies: chills, fever, malaise Musculoskeletal: arthralgia. denies: back pain, joint swelling Skin: denies: change in color Neurological: denies: numbness, paresthesias ED Past Medical Hx - Past Medical History Hx Hypertension: Yes Hx Asthma: Yes Additional medical history: Bronchitis Reactive airway disease - Surgical History Additional Surgical History: WISDOM TEETH - Social History Smoking Status: Current Every Day Smoker Substance Use Type: None - Medications Home Medications: Home Medications Medication Instructions Recorded Confirmed Last Taken Type Fluticasone [Flonase] 1 spray NS QDAY #1 bottle 05/31/16 Unknown Rx Albuterol Sulfate [Proair 90 mcg IH Q4HR PRN #2 aer.pow.ba 04/08/17 Unknown Rx Respiclick] Benzonatate [Tessalon Perles] 100 mg PO Q8HR PRN #30 capsule 04/08/17 Unknown Rx ALBUTEROL NEB's [Proventil 0.083% 2.5 mg IH TID PRN #1 box 10/24/17 Unknown Rx NEBS] Albuterol Sulfate [Ventolin Hfa] 1 puff IH Q4H PRN #1 hfa.aer.ad 10/24/17 Unknown Rx Benzonatate [Tessalon Perles] 100 mg PO Q8HR PRN #20 capsule 10/24/17 Unknown Rx Nebulizer [Compact Compressor 1 each MC ONCE #1 each 10/24/17 Unknown Rx Nebulizer] Phenylephrine/Dm/Acetaminop/GG 10 ml PO Q6H PRN #1 liquid 10/24/17 Unknown Rx [Mucinex Vjax-Xot-Skrmnmxjeb Lq] predniSONE [Deltasone] 40 mg PO QDAY #10 tab 10/24/17 Unknown Rx Ondansetron [Zofran Odt] 4 mg PO Q8HR PRN #14 tab.rapdis 11/03/17 Unknown Rx traMADoL [Ultram 50 MG tab] 50 mg PO Q4HR PRN #14 tablet 11/03/17 Unknown Rx Acetaminophen/Codeine [Tylenol 1 tab PO Q6H PRN #12 tab 03/01/18 Unknown Rx /Codeine # 3 tab] Ibuprofen [Motrin 600 MG tab] 600 mg PO Q8H PRN #15 tablet 03/01/18 Unknown Rx Oseltamivir [Tamiflu] 75 mg PO BID #10 cap 05/12/19 Unknown Rx Ibuprofen [Motrin 800 MG tab] 800 mg PO Q8HR PRN #20 tablet 06/01/20 Unknown Rx ED Physical Exam - General Limitations: No Limitations General appearance: alert, in no apparent distress - Head Head exam: Present: atraumatic, normocephalic - Eye Eye exam: Present: normal appearance. Absent: scleral icterus - Neck Neck exam: Present: normal inspection - Respiratory Respiratory exam: Absent: respiratory distress - Cardiovascular Cardiovascular Exam: Present: regular rate - Extremities Exam Extremities exam: Present: full ROM, other (Tenderness to palpation noted of the left femur, knee, and lower leg without bruising or obvious deformity normal sensation and range of motion of the hip, knee, and ankle noted; patient has normal left pedal perfusion) - Back Exam Back exam: Present: normal inspection - Neurological Exam Neurological exam: Present: alert, oriented X3. Absent: motor sensory deficit - Psychiatric Psychiatric exam: Present: normal affect, normal mood - Skin Skin exam: Present: warm, dry, intact, normal color. Absent: rash ED Course Vital Signs 06/01/20 07:43 Temperature 97.9 F Pulse Rate 80 Respiratory 18 Rate Blood Pressure 118/70 O2 Sat by Pulse 96 Oximetry ED Medical Decision Making - Radiology Data Radiology results: report reviewed LEFT FEMUR 2 VIEWS 0837 INDICATION: pain after fall COMPARISON: 11/03/2017 FINDINGS: Small artifact is seen on all images. No fractures or dislocations are seen. - Medical Decision Making 24-year-old -[place] male patient presents with complaints of left leg pain after a fall at work today. Patient rates his pain as a 9/10 in severity states he is having difficulty walking. He states he fell onto the leg and twisted it. He denies any bruising, lacerations, or numbness/tingling/difficulty moving his leg. X-rays are negative for any fractures. Patient provided with crutches and will treat for leg sprain. Recommend icing and follow-up with primary care in 3 to 5 days. Strict return precautions were discussed in detail with patient who verbalizes understanding. Critical care attestation.: If time is entered above; I have spent that time in minutes in the direct care of this critically ill patient, excluding procedure time. ED Disposition Clinical Impression: Sprain of left knee/leg Qualifiers: Encounter type: initial encounter Qualified Code(s): S83.92XA - Sprain of unspecified site of left knee, initial encounter Disposition: TO HOME OR SELFCARE Is pt being admited?: No Condition: Stable Instructions: Knee Sprain, Adult Prescriptions: Ibuprofen [Motrin 800 MG tab] 800 mg PO Q8HR PRN #20 tablet PRN Reason: pain Referrals: [facility] [Provider Group] - 3-5 Days JENNIFER PEDROZA MD [Staff Physician] - as needed
== END 2020-06-01 10:58 | disposition home or self-care (01) ==
LOC: ED 07:36
DX: S83.92XA Sprain of unspecified site of left knee, initial encounter (principal); I10 Essential (primary) hypertension; J45.909 Unspecified asthma, uncomplicated; Z79.899 Other long term (current) drug therapy; W18.30XA Fall on same level, unspecified, initial encounter; Y93.89 Activity, other specified; Y92.69 Other specified industrial and construction area as the place of occurrence of the external cause; Y99.8 Other external cause status
CPT/HCPCS: 99283